=== PATIENT | male | born 1940 | race Two or more races ===

== ENCOUNTER 2017-12-01 06:30 | Emergency (ER) | payer OTHER ==
[~2017-12-01] VITALS: Ht 177.8 cm; Wt 113.4 kg
[2017-12-01 06:44] VITALS: Ht 177.8 cm; Wt 113.4 kg
== END 2017-12-01 10:39 | disposition expired ==
LOC: ED 06:30
DX: I46.9 Cardiac arrest, cause unspecified (principal)